=== PATIENT | male | born 1955 | race Caucasian/White ===

== ENCOUNTER → 2021-04-11 | Outpatient (CLI) | payer MEDICARE, OTHER ==
--- NOTE | 2021-04-11 13:27 | Diagnostic Imaging Report ---
INDICATION: Knee pain. Three views were obtained. FINDINGS: There is mild three-compartment osteoarthritic change. There is a joint effusion. There is no fracture or dislocation. Soft tissues are unremarkable. IMPRESSION: Three-compartment osteoarthritic change with a knee joint effusion. Dictated by: Dictated on workstation # [id number]
== END ==
LOC: RAD FS 11:03
PROVIDERS: ATTEND Nurse Practitioner
DX: M17.11 Unilateral primary osteoarthritis, right knee (principal); M25.461 Effusion, right knee
CPT/HCPCS: 73562